=== PATIENT | male | born 1955 | race American Indian/Alaskan Native ===

== ENCOUNTER 2019-12-31 10:21 | Observation (INO) | payer BC, MEDICARE ==
[2019-12-31] MEDS ORDERED: ASPIRIN 325 MG TAB PO ONE (10:38)
[2019-12-31] MEDS ORDERED: traMADol 50 MG TAB PO ONE (10:55)
[2019-12-31] MEDS ORDERED: KETOROLAC 60 MG/2 ML INJ IM ONE (10:55)
--- NOTE | 2019-12-31 10:59 | Emergency Department Report ---
ED Chest Pain HPI - General Chief Complaint: Chest Pain Stated Complaint: CP Time Seen by Provider: 12/31/19 10:44 Source: patient, old records reviewed Mode of arrival: Wheelchair Limitations: No Limitations - History of Present Illness Initial Comments: 64-year-old male with a past medical history obesity, diabetes, hypertension, and bilateral chronic ankle pain presents to the hospital complaining pounding left-sided chest discomfort and bilateral ankle pain. Last night while at rest patient had intermittent left-sided chest pounding which she does not describe as painful. Episode lasted 2 to 3 minutes and was spontaneous resolved. He had 3-4 episodes last night. He denies associated symptoms include shortness of breath, nausea, vomiting, diaphoresis, or lightheadedness. For the last several years patient has had chronic intermittent bilateral ankle pain which has been worked up as an outpatient. He states he initially thought he had gout within stated he has rheumatoid arthritis and possible neuropathy. The last 6 months patient has been undergoing physical therapy for this ankle pain. Patient was taking tramadol for pain but ran out approximately 2 weeks ago. Now as of worsening bilateral ankle pain with mild swelling as well as numbness/paresthesias to the left second toe. No recent trauma or fever reported. Patient denies a previous history of CAD or stress test. Patient is a non-smoker and states that his brother had an TX in his early 60s - Related Data Previous Rx's Medication Instructions Recorded Last Taken Type Gabapentin [Neurontin] 300 mg PO Q8HR #90 tab 02/10/16 Unknown Rx glyBURIDE [Glyburide] 10 mg PO QAM #60 tablet 02/10/16 Unknown Rx lisinopriL [Zestril TAB] 10 mg PO QDAY #30 tablet 02/10/16 Unknown Rx metFORMIN [Glucophage] 500 mg PO BID #60 tablet 02/10/16 Unknown Rx Cyclobenzaprine [Flexeril] 10 mg PO QHS PRN #20 tablet 03/08/18 Unknown Rx Allergies Allergy/AdvReac Type Severity Reaction Status Date / Time No Known Allergies Allergy Unverified 02/10/16 11:31 Heart Score - HEART Score History: Slightly suspicious EKG: Non-specific Age: > 65 Risk factors: > 3 risk factors or hx of atherosclerotic disease Troponin: < normal limit HEART Score: 5 ED Review of Systems ROS: Stated complaint: CP Other details as noted in HPI Comment: All other systems reviewed and negative ED Past Medical Hx - Past Medical History Previous Medical History?: Yes Hx Hypertension: Yes Hx Diabetes: Yes - Surgical History Past Surgical History?: No - Social History Smoking Status: Never Smoker Substance Use Type: None - Medications Home Medications: Home Medications Medication Instructions Recorded Confirmed Last Taken Type Gabapentin [Neurontin] 300 mg PO Q8HR #90 tab 02/10/16 Unknown Rx glyBURIDE [Glyburide] 10 mg PO QAM #60 tablet 02/10/16 Unknown Rx lisinopriL [Zestril TAB] 10 mg PO QDAY #30 tablet 02/10/16 Unknown Rx metFORMIN [Glucophage] 500 mg PO BID #60 tablet 02/10/16 Unknown Rx Cyclobenzaprine [Flexeril] 10 mg PO QHS PRN #20 tablet 03/08/18 Unknown Rx ED Physical Exam - General Limitations: No Limitations - Other Other exam information: General: No acute distress Head: Atraumatic Eyes: normal appearance ENT: Moist mucous membranes Neck: Normal appearance, no midline tenderness Chest: Clear to auscultation bilaterally CV: Regular rate and rhythm Abdomen: Soft, normal bowel sounds, nontender, nondistended, no rebound or guarding Back: Normal inspection Extremity: Mild bilateral ankle swelling. Tender to palpation of medial and la teral ankles bilaterally. 2+ DP pulses equal bilaterally. No warmth or erythema. Full range of motion Neuro: Alert O x 3, no facial asymmetry, speech clear, no gross motor sensory deficit Psych: Appropriate behavior Skin: No rash ED Course Vital Signs 12/31/19 12/31/19 12/31/19 10:35 11:05 11:06 Temperature 98 F Pulse Rate 87 Respiratory 20 20 20 Rate Blood Pressure 147/76 [Left] O2 Sat by Pulse 98 Oximetry 12/31/19 11:19 Temperature Pulse Rate Respiratory 20 Rate Blood Pressure [Left] O2 Sat by Pulse 98 Oximetry FRAN score - Fran Score Age > 65: (1) Yes Aspirin use within the Past 7 Days: (0) No 3 or more CAD Risk Factors: (1) Yes 2 or more Angina events in past 24 hrs: (1) Yes Known CAD with more than 50% Stenosis: (0) No Elevated Cardiac Markers: (0) No ST Deviation Greater than 0.5mm: (0) No FRAN Score: 3 ED Medical Decision Making - Lab Data Result diagrams: 12/31/19 10:53 12/31/19 10:53 Lab Results 12/31/19 12/31/19 12/31/19 Range/Units 10:53 10:53 10:53 WBC 12.2 H (4.5-11.0) K/mm3 RBC 4.23 (3.65-5.03) M/mm3 Hgb 12.6 (11.8-15.2) gm/dl Hct 38.0 (35.5-45.6) % MCV 90 (84-94) fl MCH 30 (28-32) pg MCHC 33 (32-34) % RDW 13.9 (13.2-15.2) % Plt Count 279 (140-440) K/mm3 Eos % (Auto) Ambulance Driver Paramedic PT 14.0 (12.2-14.9) Sec. INR 1.06 (0.87-1.13) Sodium 139 (137-145) mmol/L Potassium 4.6 (3.6-5.0) mmol/L Chloride 99.9 (98-107) mmol/L Carbon Dioxide 26 (22-30) mmol/L Anion Gap 18 mmol/L BUN 21 H (9-20) mg/dL Creatinine 0.9 (0.8-1.3) mg/dL Estimated GFR > 60 ml/min BUN/Creatinine Ratio 23 % Glucose 191 H (75-100) mg/dL Calcium 10.4 H (8.4-10.2) mg/dL Troponin T < 0.010 (0.00-0.029) ng/mL - EKG Data -: EKG Interpreted by Ut EKG shows normal: sinus rhythm, ST-T waves (Flat lateral T waves in inferior T wave inversion on aVL) Rate: normal (85) - EKG Data When compared to previous EKG there are: no significant change - Radiology Data Radiology results: report reviewed CHEST 1 VIEW INDICATION: Chest Pain. COMPARISON: None. FINDINGS: Support devices: None. Heart: Normal. Lungs/Pleura: No acute pulmonary or pleural findings. IMPRESSION: 1. No acute findings. - Medical Decision Making 64-year-old male presents to the hospital planing of exacerbation of his chronic bilateral ankle pain with mild ankle edema but also has a secondary complaint of left-sided pounding chest pain intermittent last night. Chest pain is somewhat atypical without associated symptoms however, patient has a heart score of 5 without history of previous cardiac work-up or stress test and therefore will be admitted to the hospital for further cardiac work-up. Initial troponin negative with stable EKG findings when compared to previous. Patient treated with tramadol and aspirin in the ED Critical Care Time: No Critical care attestation.: If time is entered above; I have spent that time in minutes in the direct care of this critically ill patient, excluding procedure time. ED Disposition Clinical Impression: Chest pain, Chronic ankle pain, bilateral, Hypertension, BMI 30.0-30.9,adult, Diabetes Disposition: OP ADMIT IP TO THIS HOSP Is pt being admited?: Yes Does the pt Need Aspirin: Yes Condition: Stable Time of Disposition: 11:48 (Dr Landa/hospitalist)
[2019-12-31 11:12] LABS: Hemoglobin 12.6 gm/dl (11.8-15.2); Mean Corpuscular HGB Conc 33 % (32-34); Mean Corpuscular Volume 90 fl (84-94); Platelet Count 279 K/mm3 (140-440); Red Blood Count 4.23 M/mm3 (3.65-5.03); Red Cell Distribution Width 13.9 % (13.2-15.2)
[2019-12-31 11:23] LABS: INR 1.06 (0.87-1.13)
[2019-12-31 11:32] LABS: BUN/Creatinine Ratio 23; Blood Urea Nitrogen 21 mg/dL (9-20); Calcium 10.4 mg/dL (8.4-10.2); Hemolysis Index 25
--- NOTE | 2019-12-31 11:41 | XRay Report ---
CHEST 1 VIEW INDICATION: Chest Pain. COMPARISON: None. FINDINGS: Support devices: None. Heart: Normal. Lungs/Pleura: No acute pulmonary or pleural findings. IMPRESSION: 1. No acute findings. Signer Name: Vito Kulkarni MD Signed: 12/31/2019 11:37 AM Workstation Name: [id number]
[2019-12-31 12:18] LABS: Platelet Estimate Consistent w Auto; RBC Morphology Normal; Total Cells Counted 100
[2019-12-31] MEDS ORDERED: CYCLOBENZAPRINE 10 MG TAB PO PRN (13:04)
--- NOTE | 2019-12-31 13:04 | History and Physical Report ---
History of Present Illness Date of examination: 12/31/19 Date of admission: 12/31/19 Chief complaint: chest pain History of present illness: 64-year-old male presents to the hospital planing of exacerbation of his chronic bilateral ankle pain with mild ankle edema but also has a secondary complaint of left-sided pounding chest pain intermittent last night. Chest pain is somewhat atypical without associated symptoms however, patient has a heart score of 5 without history of previous cardiac work-up or stress test and therefore will be admitted to the hospital for further cardiac work-up. Initial troponin negative with stable EKG findings when compared to previous. Patient treated with tramadol and aspirin in the ED Medications and Allergies Allergies Allergy/AdvReac Type Severity Reaction Status Date / Time No Known Allergies Allergy Unverified 02/10/16 11:31 Home Medications Medication Instructions Recorded Confirmed Last Taken Type Gabapentin [Neurontin] 300 mg PO Q8HR #90 tab 02/10/16 Unknown Rx glyBURIDE [Glyburide] 10 mg PO QAM #60 tablet 02/10/16 Unknown Rx lisinopriL [Zestril TAB] 10 mg PO QDAY #30 tablet 02/10/16 Unknown Rx metFORMIN [Glucophage] 500 mg PO BID #60 tablet 02/10/16 Unknown Rx Cyclobenzaprine [Flexeril] 10 mg PO QHS PRN #20 tablet 03/08/18 Unknown Rx Exam - Constitutional Vitals: Temp Pulse Resp BP Pulse Ox 98 F 76 14 177/72 96 12/31/19 10:35 12/31/19 11:57 12/31/19 11:57 12/31/19 11:57 12/31/19 11:57 HEART Score - HEART Score EKG: Non-specific Age: > 65 Risk factors: > 3 risk factors or hx of atherosclerotic disease Troponin: WBC 12.2 K/mm3 (4.5-11.0) H 12/31/19 10:53 RBC 4.23 M/mm3 (3.65-5.03) 12/31/19 10:53 Hgb 12.6 gm/dl (11.8-15.2) 12/31/19 10:53 Hct 38.0 % (35.5-45.6) 12/31/19 10:53 MCV 90 fl (84-94) 12/31/19 10:53 MCH 30 pg (28-32) 12/31/19 10:53 MCHC 33 % (32-34) 12/31/19 10:53 RDW 13.9 % (13.2-15.2) 12/31/19 10:53 Plt Count 279 K/mm3 (140-440) 12/31/19 10:53 Eos % (Auto) Cable Worker Helper 12/31/19 10:53 Add Manual Diff Complete 12/31/19 10:53 Total Counted 100 12/31/19 10:53 Seg Neuts % (Manual) 49.0 % (40.0-70.0) 12/31/19 10:53 Band Neutrophils % 0 % 12/31/19 10:53 Lymphocytes % (Manual) 25.0 % (13.4-35.0) 12/31/19 10:53 Reactive Lymphs % (Man) 0 % 12/31/19 10:53 Monocytes % (Manual) 6.0 % (0.0-7.3) 12/31/19 10:53 Eosinophils % (Manual) 18.0 % (0.0-4.3) H 12/31/19 10:53 Basophils % (Manual) 2.0 % (0.0-1.8) H 12/31/19 10:53 Metamyelocytes % 0 % 12/31/19 10:53 Myelocytes % 0 % 12/31/19 10:53 Promyelocytes % 0 % 12/31/19 10:53 Blast Cells % 0 % 12/31/19 10:53 Nucleated RBC % Not Reportable 12/31/19 10:53 Seg Neutrophils # Man 6.0 K/mm3 (1.8-7.7) 12/31/19 10:53 Band Neutrophils # 0.0 K/mm3 12/31/19 10:53 Lymphocytes # (Manual) 3.1 K/mm3 (1.2-5.4) 12/31/19 10:53 Abs React Lymphs (Man) 0.0 K/mm3 12/31/19 10:53 Monocytes # (Manual) 0.7 K/mm3 (0.0-0.8) 12/31/19 10:53 Eosinophils # (Manual) 2.2 K/mm3 (0.0-0.4) H 12/31/19 10:53 Basophils # (Manual) 0.2 K/mm3 (0.0-0.1) H 12/31/19 10:53 Metamyelocytes # 0.0 K/mm3 12/31/19 10:53 Myelocytes # 0.0 K/mm3 12/31/19 10:53 Promyelocytes # 0.0 K/mm3 12/31/19 10:53 Blast Cells # 0.0 K/mm3 12/31/19 10:53 WBC Morphology Not Reportable 12/31/19 10:53 Hypersegmented Neuts Not Reportable 12/31/19 10:53 Hyposegmented Neuts Not Reportable 12/31/19 10:53 Hypogranular Neuts Not Reportable 12/31/19 10:53 Smudge Cells Not Reportable 12/31/19 10:53 Toxic Granulation Not Reportable 12/31/19 10:53 Toxic Vacuolation Not Reportable 12/31/19 10:53 Dohle Bodies Not Reportable 12/31/19 10:53 Pelger-Huet Anomaly Not Reportable 12/31/19 10:53 Mimi Rods Not Reportable 12/31/19 10:53 Platelet Estimate Consistent w auto 12/31/19 10:53 Clumped Platelets Not Reportable 12/31/19 10:53 Plt Clumps, EDTA Not Reportable 12/31/19 10:53 Large Platelets Not Reportable 12/31/19 10:53 Giant Platelets Not Reportable 12/31/19 10:53 Platelet Satelliting Not Reportable 12/31/19 10:53 Plt Morphology Comment Not Reportable 12/31/19 10:53 RBC Morphology Normal 12/31/19 10:53 Dimorphic RBCs Not Reportable 12/31/19 10:53 Polychromasia Not Reportable 12/31/19 10:53 Hypochromasia Not Reportable 12/31/19 10:53 Poikilocytosis Not Reportable 12/31/19 10:53 Anisocytosis Not Reportable 12/31/19 10:53 Microcytosis Not Reportable 12/31/19 10:53 Macrocytosis Not Reportable 12/31/19 10:53 Spherocytes Not Reportable 12/31/19 10:53 Pappenheimer Bodies Not Reportable 12/31/19 10:53 Sickle Cells Not Reportable 12/31/19 10:53 Target Cells Not Reportable 12/31/19 10:53 Tear Drop Cells Not Reportable 12/31/19 10:53 Ovalocytes Not Reportable 12/31/19 10:53 Helmet Cells Not Reportable 12/31/19 10:53 Tapia-Chaffee Bodies Not Reportable 12/31/19 10:53 Groton Rings Not Reportable 12/31/19 10:53 Jonathan Cells Not Reportable 12/31/19 10:53 Bite Cells Not Reportable 12/31/19 10:53 Crenated Cell Not Reportable 12/31/19 10:53 Elliptocytes Not Reportable 12/31/19 10:53 Acanthocytes (Spur) Not Reportable 12/31/19 10:53 Rouleaux Not Reportable 12/31/19 10:53 Hemoglobin C Crystals Not Reportable 12/31/19 10:53 Schistocytes Not Reportable 12/31/19 10:53 Malaria parasites Not Reportable 12/31/19 10:53 Matt Bodies Not Reportable 12/31/19 10:53 Hem Pathologist Commnt No 12/31/19 10:53 PT 14.0 Sec. (12.2-14.9) 12/31/19 10:53 INR 1.06 (0.87-1.13) 12/31/19 10:53 Sodium 139 mmol/L (137-145) 12/31/19 10:53 Potassium 4.6 mmol/L (3.6-5.0) 12/31/19 10:53 Chloride 99.9 mmol/L (98-107) 12/31/19 10:53 Carbon Dioxide 26 mmol/L (22-30) 12/31/19 10:53 Anion Gap 18 mmol/L 12/31/19 10:53 BUN 21 mg/dL (9-20) H 12/31/19 10:53 Creatinine 0.9 mg/dL (0.8-1.3) 12/31/19 10:53 Estimated GFR > 60 ml/min 12/31/19 10:53 BUN/Creatinine Ratio 23 % 12/31/19 10:53 Glucose 191 mg/dL (75-100) H 12/31/19 10:53 Calcium 10.4 mg/dL (8.4-10.2) H 12/31/19 10:53 Troponin T < 0.010 ng/mL (0.00-0.029) 12/31/19 10:53 Troponin: < normal limit Results - Labs CBC & Chem 7: 12/31/19 10:53 12/31/19 10:53 Labs: Abnormal lab results 12/31/19 12/31/19 Range/Units 10:53 10:53 WBC 12.2 H (4.5-11.0) K/mm3 Eosinophils % (Manual) 18.0 H (0.0-4.3) % Basophils % (Manual) 2.0 H (0.0-1.8) % Eosinophils # (Manual) 2.2 H (0.0-0.4) K/mm3 Basophils # (Manual) 0.2 H (0.0-0.1) K/mm3 BUN 21 H (9-20) mg/dL Glucose 191 H (75-100) mg/dL Calcium 10.4 H (8.4-10.2) mg/dL
[2019-12-31] MEDS ORDERED: NITROGLYCERIN 0.4 MG TAB SUBL SL PRN (13:06)
[2019-12-31] MEDS ORDERED: MORPHINE 2 MG/1 ML INJ IV PRN (13:06)
[2019-12-31] MEDS ORDERED: carvediloL 6.25 MG TAB PO ONE (13:09)
[2019-12-31] MEDS ORDERED: GABAPENTIN 300 MG CAP ONE (13:44)
[2019-12-31] MEDS ORDERED: carvediloL 6.25 MG TAB ONE (13:44)
[2019-12-31] MEDS: GABAPENTIN 300 MG CAP PO SCH ×2 (13:45→21:52)
--- NOTE | 2019-12-31 15:03 | History and Physical Report ---
<GRUPO MARISCAL - Last Filed: 12/31/19 16:04> History of Present Illness Date of examination: 12/31/19 Date of admission: 12/31/19 12:54 Chief complaint: Chest pain History of present illness: 64-year-old male presents to the hospital planing of exacerbation of his chronic bilateral ankle pain with mild ankle edema but also has a secondary complaint of left-sided pounding chest pain intermittent last night. Chest pain is somewhat atypical without associated symptoms however, patient has a heart score of 5 without history of previous cardiac work-up or stress test and therefore will be admitted to the hospital for further cardiac work-up. Initial troponin negative with stable EKG findings when compared to previous. Patient treated with tramadol and aspirin in the ED ED Work up showed WBC 12.2, Sodium 139, Potassium 4.6, CR 0.9, Troponin -normal Serum blood sugar 191 EKG-ST-T waves (Flat lateral T waves in inferior T wave inversion on aVL) Chest x-ray-No acute finding Patient seen at bedside in ED. He said his chest pain is better. He denies tobacco and illicit drug use I reviewed lab, mar, and v/s patient blood pressure at the time of this assessment 208/100 Patient strongly advised to be compliance with BP med-advised to monitor bp at home and f/u with his PCP if his bp is elevated. Patient started on amlodipine and lisinopril-will monitor BP level Patient report bilateral ankle pain. pain level 8/10 patient said he was told by his PCP he has arthritis Uric acid level done to r/o Gout Past History Past Medical History: CAD, diabetes, hypertension Family history: CAD Medications and Allergies Allergies Allergy/AdvReac Type Severity Reaction Status Date / Time No Known Allergies Allergy Unverified 02/10/16 11:31 Home Medications Medication Instructions Recorded Confirmed Last Taken Type Gabapentin [Neurontin] 300 mg PO Q8HR #90 tab 02/10/16 Unknown Rx glyBURIDE [Glyburide] 10 mg PO QAM #60 tablet 02/10/16 Unknown Rx lisinopriL [Zestril TAB] 10 mg PO QDAY #30 tablet 02/10/16 Unknown Rx metFORMIN [Glucophage] 500 mg PO BID #60 tablet 02/10/16 Unknown Rx Cyclobenzaprine [Flexeril] 10 mg PO QHS PRN #20 tablet 10/30/18 Unknown Rx Active Meds: Active Medications Aspirin (Ecotrin) 325 mg PO QDAY [facility] Atorvastatin Calcium (Lipitor) 40 mg PO QHS [facility] Cyclobenzaprine HCl (Flexeril) 10 mg PO QHS PRN PRN Reason: Muscle Spasm Enoxaparin Sodium (Enoxaparin) 40 mg SUB-Q QDAY [facility] Gabapentin (Gabapentin) 300 mg PO Q8HR [facility] Last Admin: 12/31/19 13:45 Dose: 300 mg Documented by: Insulin Human Regular (Humulin R) 0 unit SUB-Q ACHS [facility]; Protocol Lisinopril (Zestril) 10 mg PO QDAY [facility] Morphine Sulfate (Morphine) 2 mg IV Q5MIN PRN PRN Reason: Chest Pain unrelieved by NTG Nitroglycerin (Nitrostat) 0.4 mg SL Q5M PRN PRN Reason: Chest Pain Pantoprazole Sodium (Protonix) 40 mg PO QDAY [facility] Sodium Chloride (Sodium Chloride Flush Syringe 10 Ml) 10 ml IV PRN PRN PRN Reason: LINE FLUSH Review of Systems Cardiovascular: chest pain, high blood pressure Exam - Constitutional Vitals: Temp Pulse Resp BP Pulse Ox 98 F 78 18 176/96 96 12/31/19 10:35 12/31/19 13:00 12/31/19 13:00 12/31/19 13:00 12/31/19 13:00 General appearance: Present: mild distress, well-nourished, obese - EENT Eyes: Present: PERRL ENT: hearing intact, clear oral mucosa - Neck Neck: Present: supple, normal ROM - Respiratory Respiratory effort: normal Respiratory: bilateral: CTA - Cardiovascular Heart Sounds: Present: S1 & S2. Absent: rub, click - Extremities Extremities: pulses symmetrical, No edema Peripheral Pulses: within normal limits - Abdominal General gastrointestinal: Present: soft, non-tender, non-distended, normal bowel sounds Male genitourinary: Present: normal - Integumentary Integumentary: Present: clear, warm, dry - Musculoskeletal Musculoskeletal: gait normal, strength equal bilaterally - Psychiatric Psychiatric: appropriate mood/affect, intact judgment & insight - Neurologic Neurologic: CNII-XII intact, moves all extremities HEART Score - HEART Score History: Moderately suspicious EKG: Non-specific Age: > 65 Risk factors: > 3 risk factors or hx of atherosclerotic disease Troponin: Troponin T < 0.010 ng/mL (0.00-0.029) 12/31/19 10:53 Troponin: < normal limit HEART Score: 6 Results - Labs CBC & Chem 7: 12/31/19 10:53 12/31/19 10:53 Labs: Abnormal lab results 12/31/19 12/31/19 Range/Units 10:53 10:53 WBC 12.2 H (4.5-11.0) K/mm3 Eosinophils % (Manual) 18.0 H (0.0-4.3) % Basophils % (Manual) 2.0 H (0.0-1.8) % Eosinophils # (Manual) 2.2 H (0.0-0.4) K/mm3 Basophils # (Manual) 0.2 H (0.0-0.1) K/mm3 BUN 21 H (9-20) mg/dL Glucose 191 H (75-100) mg/dL Calcium 10.4 H (8.4-10.2) mg/dL Assessment and Plan - Patient Problems (1) BMI 30.0-30.9,adult Current Visit: Yes Status: Acute Plan to address problem: Discussed lifestyle modification healthy diet and weight management Avoid fried foods and foods rich in concentrated sweetners (2) Chest pain Current Visit: Yes Status: Acute Plan to address problem: Sublinqual nitro for pain 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 Oxygen supplement if needed (3) Chronic ankle pain, bilateral Current Visit: Yes Status: Acute Plan to address problem: Pain management patient advised to f/u with PCP/Pain management after d/c Will check uric acid to r/o gout flair up (4) Diabetes Current Visit: Yes Status: Acute Plan to address problem: Monitor blood sugar with ssi HGA1c f/u with result Discussed diabetic diet with pt Resume home antihyperglycemic (5) Hypertension Current Visit: Yes Status: Acute Plan to address problem: Monitor blood pressure Resume home med Sign Manufacturer consult Avoid salty foods (6) DVT of proximal leg (deep vein thrombosis) Current Visit: Yes Status: Acute (7) DVT prophylaxis Current Visit: Yes Status: Acute Plan to address problem: Lovenox (8) Leucocytosis Current Visit: Yes Status: Acute Plan to address problem: WBC 12.2 ? cause UA ordered-f/u with result Patient denies fever, cough -lung clear on auscultation Chest x-ray shows no acute process <FABIANA CARBAJAL R - Last Filed: 01/01/20 12:40> History of Present Illness Date of admission: 12/31/19 12:54 Medications and Allergies Active Meds: Active Medications Amlodipine Besylate (Amlodipine) 10 mg PO QDAY [facility] Last Admin: 12/31/19 19:07 Dose: 10 mg Documented by: Aspirin (Ecotrin) 325 mg PO QDAY [facility] Atorvastatin Calcium (Lipitor) 40 mg PO QHS [facility] Last Admin: 12/31/19 21:53 Dose: 40 mg Documented by: Cyclobenzaprine HCl (Flexeril) 10 mg PO QHS PRN PRN Reason: Muscle Spasm Enoxaparin Sodium (Enoxaparin) 40 mg SUB-Q QDAY [facility] Gabapentin (Gabapentin) 300 mg PO Q8HR [facility] Last Admin: 01/01/20 06:32 Dose: 300 mg Documented by: Hydralazine HCl (Apresoline) 5 mg IV Q4HR PRN PRN Reason: Hypertension Insulin Human Regular (Humulin R) 0 unit SUB-Q [facility]; Protocol Last Admin: 01/01/20 09:09 Dose: Not Given Documented by: Lisinopril (Zestril) 40 mg PO QDAY [facility] Last Admin: 12/31/19 19:07 Dose: 40 mg Documented by: Morphine Sulfate (Morphine) 2 mg IV Q5MIN PRN PRN Reason: Chest Pain unrelieved by NTG Nitroglycerin (Nitrostat) 0.4 mg SL Q5M PRN PRN Reason: Chest Pain Pantoprazole Sodium (Protonix) 40 mg PO QDAY [facility] Sodium Chloride (Sodium Chloride Flush Syringe 10 Ml) 10 ml IV PRN PRN PRN Reason: LINE FLUSH Last Admin: 12/31/19 21:53 Dose: 10 ml Documented by: Exam - Constitutional Vitals: Temp Pulse Resp BP Pulse Ox 97.8 F 76 18 135/67 97 01/01/20 07:48 01/01/20 07:48 01/01/20 07:48 01/01/20 07:48 01/01/20 07:48 HEART Score - HEART Score Troponin: Troponin T < 0.010 ng/mL (0.00-0.029) 12/31/19 19:28 Results - Labs CBC & Chem 7: 01/01/20 05:15 12/31/19 14:48 Labs: Abnormal lab results 12/31/19 12/31/19 12/31/19 Range/Units 14:48 14:48 15:27 Eosinophils % (Manual) (0.0-4.3) % Eosinophils # (Manual) (0.0-0.4) K/mm3 BUN 23 H (9-20) mg/dL Glucose 102 H (75-100) mg/dL POC Glucose (70-105) Hemoglobin A1c 7.7 H (4-6) % Uric Acid 8.6 H (3.5-7.6) mg/dL 12/31/19 12/31/19 01/01/20 Range/Units 18:15 19:21 05:15 Eosinophils % (Manual) 23.0 H (0.0-4.3) % Eosinophils # (Manual) 2.2 H (0.0-0.4) K/mm3 BUN (9-20) mg/dL Glucose (75-100) mg/dL POC Glucose 62 L 111 H (70-105) Hemoglobin A1c (4-6) % Uric Acid (3.5-7.6) mg/dL 01/01/20 Range/Units 08:10 Eosinophils % (Manual) (0.0-4.3) % Eosinophils # (Manual) (0.0-0.4) K/mm3 BUN (9-20) mg/dL Glucose (75-100) mg/dL POC Glucose 132 H (70-105) Hemoglobin A1c (4-6) % Uric Acid (3.5-7.6) mg/dL Assessment and Plan I saw and evaluated the patient. I agree with the findings and the plan of care as documented in the Nurse Practitioner's~note,
[2019-12-31] MEDS ORDERED: hydrALAZINE 20 MG/1 ML INJ IV PRN (15:53)
[2019-12-31 16:40] LABS: BUN/Creatinine Ratio 23; Blood Urea Nitrogen 23 mg/dL (9-20); Calcium 10.2 mg/dL (8.4-10.2); Hemolysis Index 6
[2019-12-31] MEDS: INSULIN REGULAR, HUMAN 100 UNIT/ML 3ML VIAL SUB-Q SCH (19:01)
[2019-12-31] MEDS: LISINOPRIL 40 MG TAB PO SCH (19:07)
[2019-12-31] MEDS: amLODIPine 10 MG TAB PO SCH (19:07)
[2020-01-01] MEDS: INSULIN REGULAR, HUMAN 100 UNIT/ML 3ML VIAL SUB-Q SCH ×4 (00:05→17:00)
[2020-01-01 05:51] LABS: Hematocrit 36.7 % (35.5-45.6); Hemoglobin 12.2 gm/dl (11.8-15.2); Mean Corpuscular HGB Conc 33 % (32-34); Mean Corpuscular Volume 90 fl (84-94); Platelet Count 264 K/mm3 (140-440); Red Blood Count 4.08 M/mm3 (3.65-5.03); Red Cell Distribution Width 13.7 % (13.2-15.2)
[2020-01-01] MEDS: GABAPENTIN 300 MG CAP PO SCH ×2 (06:32→13:41)
[2020-01-01 08:11] LABS: Total Cells Counted 100
[2020-01-01 08:14] LABS: Platelet Estimate Consistent w Auto; RBC Morphology Normal
[2020-01-01] MEDS ORDERED: PANTOPRAZOLE 40 MG TAB PO SCH (10:00)
[2020-01-01] MEDS ORDERED: ENOXAPARIN 40 MG/0.4 ML INJ SUB-Q SCH (10:00)
[2020-01-01] MEDS ORDERED: ASPIRIN EC 325 MG TAB PO SCH (10:00)
[2020-01-01] MEDS ORDERED: LISINOPRIL 10 MG TAB PO SCH (10:00)
[2020-01-01] MEDS ORDERED: ENOXAPARIN 60 MG/0.6 ML INJ SUB-Q SCH (10:00)
[2020-01-01] MEDS ORDERED: REGADENOSON 0.4 MG/5 ML INJ IV ONE ×2 (11:33)
[2020-01-01 12:47] VITALS: BP 137/73
[2020-01-01] MEDS: amLODIPine 10 MG TAB PO SCH (13:38)
[2020-01-01] MEDS: LISINOPRIL 40 MG TAB PO SCH (13:40)
--- NOTE | 2020-01-01 14:37 | Treadmill Report ---
THALLIUM STRESS TEST LEFT VENTRICLE: Left ventricular chamber size is within normal spread. Perfusion study demonstrates homogeneous uptake of the tracer in all segments, no significant defects identified. Gated analysis demonstrates normal left ventricular systolic function, ejection fraction 63%. CONCLUSION: Normal myocardial perfusion study. JOB# [id number] CA/NTS
--- NOTE | 2020-01-01 15:57 | Discharge Summary ---
Providers - Providers Date of Admission: 12/31/19 12:54 Date of discharge: 01/01/20 Attending physician: FABIANA CARBAJAL 12/31/19 Consult to Cardiac Rehabilitation [CONS] Routine Reason For Exam: Phase I 12/31/19 13:05 Consult to Physician [CONS] Routine Comment: Consulting Provider: VANCE REYES Physician Instructions: Reason For Exam: chest pain [facility] Condition: Stable Hospital course: This is a 64-year-old black male with a history of hypertension and hyperl ipidemia presented to the ER with complaints of Retrosternal chest pain for 1 day. Patient was evaluated in the ER, initial cardiac enzyme and EKG was unremarkable, chest x-ray showed no infiltrates. Patient was admitted and underwent myocardial stress test which was normal, 2D echo showed preserved EF. Patient also: Planes of bilateral ankle swelling, his uric acid was elevated, patient was placed on allopurinol and patient was then discharged home in stable condition with outpatient follow-up. EKG-ST-T waves (Flat lateral T waves in inferior T wave inversion on aVL) Chest x-ray-No acute finding MPI stress test, normal 2D echo showed EF 45 to 50% Discharge diagnosis: Chest pain, most likely GERD -Continue PPI Mild chronic CHF, EF 45 to 50%, compensated Obesity Chronic ankle pain, bilateral -likely due to gout Diabetes mellitus type 2, A1c 7.7 Leukocytosis, reactive, no sepsis or Sirs Hypertension, uncontrolled Disposition: DC-01 TO HOME OR SELFCARE Time spent for discharge: 34 minutes Core Measure Documentation - Palliative Care Palliative Care/ Comfort Measures: Not Applicable - Core Measures Any of the following diagnoses?: heart failure - Heart Failure Discharge Requirements MARIJA/ARB for LVSD if EF <40%: Yes Beta tatum at discharge: Yes Exam - Physical Exam Narrative exam: GENERAL: well-developed and well-nourished black male lying on bed appeared to be in no discomfort. HEENT: Normocephalic. Atraumatic. No conjunctival congestion or icterus. Pat ient has moist mucous membranes. NECK: Supple. Trachea midline. CHEST/LUNGS: Clear to auscultated bilaterally, breathing nonlabored. No wheezes crackles or rhonchi. HEART/CARDIOVASCULAR: Regular in rate and rhythm. S1 and S2 positive. ABDOMEN: Abdomen is soft, nontender. Patient has normal bowel sounds. SKIN: There is no rash. Warm and dry. NEURO: No focal motor deficit. Follows command. MUSCULOSKELETAL: No joint effusion or tenderness. EXTRIMITY: No edema, no cyanosis or clubbing. PSYCH: Cooperative. - Constitutional Vitals: Temp Pulse Resp BP Pulse Ox 97.8 F 93 H 18 137/73 97 01/01/20 07:48 01/01/20 13:40 01/01/20 07:48 01/01/20 13:40 01/01/20 07:48 Plan Activity: advance as tolerated Weight Bearing Status: Weight Bear as Tolerated Diet: low fat, diabetic Special Instructions: record daily BP diary, record blood sugar diary Follow up with: [facility] MD HELEN [Primary Care Provider] - 7 Days Prescriptions: amLODIPine 10 mg PO QDAY #30 tablet Colchicine 0.6 mg PO BID #20 capsule Aspirin EC [Halfprin EC] 81 mg PO DAILY #30 tablet. Pantoprazole [Protonix TAB] 40 mg PO QDAY #30 tablet
[2020-01-01] MEDS ORDERED: COLCHICINE 0.6 MG CAP PO SCH (16:00)
--- NOTE | 2020-01-01 18:41 | Consultation ---
History of Present Illness Consult date: 01/01/20 Consult reason: chest pain History of present illness: The patient is a 64-year-old man with chronic hypertension and diabetes, no p rior cardiac history. He presented to the hospital primarily with complaints of swelling and pain in his ankles when he walked. He states that he is being worked up for arthritis and possible gout by his primary outpatient physician. He has no chest pain, no shortness of breath and no palpitations. ECG was normal sinus rhythm with left ventricular hypertrophy and nonspecific ST and T wave changes. A chest x-ray demonstrated normal size cardiac silhouette, and clear lungs with no interstitial edema or heart failure. Today, he underwent additional cardiac testing ordered by the medical service. A Lexiscan thallium stress test was normal. Echocardiogram demonstrated left ventricular ejection fraction 45 to 50% with moderate concentric left ventricular hypertrophy. Past History Past Medical History: diabetes, hypertension Family history: CAD Medications and Allergies Allergies Allergy/AdvReac Type Severity Reaction Status Date / Time No Known Allergies Allergy Unverified 02/10/16 11:31 Home Medications Medication Instructions Recorded Confirmed Last Taken Type Gabapentin 300 mg PO Q8HR #90 tab 02/10/16 01/01/20 Unknown Rx glyBURIDE [Glyburide] 10 mg PO QAM #60 tablet 02/10/16 01/01/20 Unknown Rx metFORMIN [Glucophage] 500 mg PO BID #60 tablet 02/10/16 01/01/20 Unknown Rx Aspirin EC [Halfprin EC] 81 mg PO DAILY #30 tablet. 01/01/20 Unknown Rx Colchicine 0.6 mg PO BID #20 capsule 01/01/20 Unknown Rx Losartan [Cozaar] 25 mg PO DAILY 01/01/20 01/01/20 Unknown History Pantoprazole [Protonix TAB] 40 mg PO QDAY #30 tablet 01/01/20 Unknown Rx amLODIPine 10 mg PO QDAY #30 tablet 01/01/20 Unknown Rx Active Meds: Active Medications Amlodipine Besylate (Amlodipine) 10 mg PO QDAY [facility] Last Admin: 01/01/20 13:38 Dose: 10 mg Documented by: Aspirin (Ecotrin) 325 mg PO QDAY [facility] Last Admin: 01/01/20 13:38 Dose: 325 mg Documented by: Atorvastatin Calcium (Lipitor) 40 mg PO QHS [facility] Last Admin: 12/31/19 21:53 Dose: 40 mg Documented by: Colchicine (Colchicine) 0.6 mg PO BID [facility] Last Admin: 01/01/20 16:06 Dose: 0.6 mg Documented by: Cyclobenzaprine HCl (Flexeril) 10 mg PO QHS PRN PRN Reason: Muscle Spasm Enoxaparin Sodium (Enoxaparin) 40 mg SUB-Q QDAY [facility] Last Admin: 01/01/20 13:40 Dose: 40 mg Documented by: Gabapentin (Gabapentin) 300 mg PO Q8HR [facility] Last Admin: 01/01/20 13:41 Dose: 300 mg Documented by: Hydralazine HCl (Apresoline) 5 mg IV Q4HR PRN PRN Reason: Hypertension Insulin Human Regular (Humulin R) 0 unit SUB-Q [facility]; Protocol Last Admin: 01/01/20 11:30 Dose: Not Given Documented by: Lisinopril (Zestril) 40 mg PO QDAY [facility] Last Admin: 01/01/20 13:40 Dose: 40 mg Documented by: Morphine Sulfate (Morphine) 2 mg IV Q5MIN PRN PRN Reason: Chest Pain unrelieved by NTG Nitroglycerin (Nitrostat) 0.4 mg SL Q5M PRN PRN Reason: Chest Pain Pantoprazole Sodium (Protonix) 40 mg PO QDAY [facility] Last Admin: 01/01/20 13:38 Dose: 40 mg Documented by: Sodium Chloride (Sodium Chloride Flush Syringe 10 Ml) 10 ml IV PRN PRN PRN Reason: LINE FLUSH Last Admin: 12/31/19 21:53 Dose: 10 ml Documented by: Review of Systems Cardiovascular: edema, no chest pain, no orthopnea, no palpitations, no rapid/irregular heart beat, no syncope, no lightheadedness, no shortness of breath Physical Examination Vital Signs Temp Pulse Resp BP Pulse Ox 98 F 87 20 147/76 98 12/31/19 10:35 12/31/19 10:35 12/31/19 10:35 12/31/19 10:35 12/31/19 10:35 General appearance: no acute distress HEENT: Positive: PERRL Neck: Positive: neck supple Cardiac: Positive: Reg Rate and Rhythm Lungs: Positive: Decreased Breath Sounds Neuro: Positive: Grossly Intact Abdomen: Positive: Soft Male genitourinary: Positive: deferred Skin: Positive: Clear Extremities: Absent: edema Results 01/01/20 05:15 12/31/19 14:48 CBC 01/01/20 Range/Units 05:15 WBC 9.4 (4.5-11.0) K/mm3 RBC 4.08 (3.65-5.03) M/mm3 Hgb 12.2 (11.8-15.2) gm/dl Hct 36.7 (35.5-45.6) % Plt Count 264 (140-440) K/mm3 EKG interpretations - Telemetry EKG Rhythm: Sinus Rhythm Assessment and Plan - Patient Problems (1) Ankle pain Current Visit: Yes Status: Acute Plan to address problem: Patient has pain and swelling of both ankles, undergoing work-up by his outpatient doctor for rheumatoid arthritis and gout. There are no cardiac spec ific symptoms, ECG, echocardiogram and Lexiscan stress test are negative. No further cardiac work-up is recommended, continue optimal blood pressure management and risk factor modification.
== END 2020-01-01 18:00 | disposition home or self-care (01) ==
LOC: ED 10:21 → 4A 12:54
PROVIDERS: ADMIT Internal Medicine; ATTEND Internal Medicine
DX: R07.89 Other chest pain (principal); E11.9 Type 2 diabetes mellitus without complications; I10 Essential (primary) hypertension; I25.10 Atherosclerotic heart disease of native coronary artery without angina pectoris; M25.571 Pain in right ankle and joints of right foot; M25.572 Pain in left ankle and joints of left foot; Z68.30 Body mass index [BMI] 30.0-30.9, adult; Z79.82 Long term (current) use of aspirin; Z79.84 Long term (current) use of oral hypoglycemic drugs
CPT/HCPCS: 36415; 71045; 78452; 80048; 82962; 83036; 84484; 84550; 85007; 85025; 85610; 93005; 93017; 93306; 96372; 99285; A9270; A9502; G0378; J1650; J1885; J2785; J1815

== ENCOUNTER 2020-07-07 12:00 | Emergency (ER) | payer BC, MEDICARE, OTHER ==
--- NOTE | 2020-07-07 12:15 | Event Note ---
ED Screening Note Date of service: 07/07/20 Time: 12:15 ED Screening Note: 64-year-old male with a PICC line to the left anterior chest presents for PICC line getting clogged and needing to have it flushed. No other complaints This initial assessment/diagnostic orders/clinical plan/treatment(s) is/are subject to change based on patients health status, clinical progression and re- assessment by fellow clinical providers in the ED. Further treatment and workup at subsequent clinical providers discretion. Patient/guardian urged not to elope from the ED as their condition may be serious if not clinically assessed and managed. Initial orders includes: Page PICC line nurse
--- NOTE | 2020-07-07 13:25 | Emergency Department Report ---
HPI - General Chief Complaint: Medical Clearance Time Seen by Provider: 07/07/20 13:11 - HPI HPI: This is a 65-year-old male who presents to the emergency department with a complaint of a clogged left upper extremity PICC line. Patient says that he is currently getting antibiotics for a left leg cellulitis. A nurse comes to his home daily to administer the antibiotics and she was unable to use the PICC line this morning. He has a history of diabetes, hypertension and recent left leg/foot surgery. He denies any fever, chest pain, shortness of breath, extremity swelling. ED Past Medical Hx - Past Medical History Previous Medical History?: Yes Hx Hypertension: Yes Hx Diabetes: Yes Additional medical history: Left leg cellulitis - Surgical History Past Surgical History?: Yes Additional Surgical History: Left leg and left foot surgery - Social History Smoking Status: Never Smoker Substance Use Type: Alcohol - Medications Home Medications: Home Medications Medication Instructions Recorded Confirmed Last Taken Type Gabapentin 300 mg PO Q8HR #90 tab 02/10/16 01/01/20 Unknown Rx glyBURIDE [Glyburide] 10 mg PO QAM #60 tablet 02/10/16 01/01/20 Unknown Rx metFORMIN [Glucophage] 500 mg PO BID #60 tablet 02/10/16 01/01/20 Unknown Rx Aspirin EC [Halfprin EC] 81 mg PO DAILY #30 tablet. 01/01/20 Unknown Rx Colchicine 0.6 mg PO BID #20 capsule 01/01/20 Unknown Rx Losartan [Cozaar] 25 mg PO DAILY 01/01/20 01/01/20 Unknown History Pantoprazole [Protonix TAB] 40 mg PO QDAY #30 tablet 01/01/20 Unknown Rx amLODIPine 10 mg PO QDAY #30 tablet 01/01/20 Unknown Rx ED Review of Systems ROS: Stated complaint: PIC LINE CLOTTED Other details as noted in HPI Constitutional: denies: chills, fever Eyes: denies: as per HPI Respiratory: denies: cough, shortness of breath Cardiovascular: denies: chest pain, palpitations Gastrointestinal: denies: abdominal pain, vomiting Musculoskeletal: denies: back pain Neurological: denies: headache, weakness Physical Exam - Physical Exam Vital Signs: Vital Signs 07/07/20 12:03 Temperature 98 F Pulse Rate 82 Respiratory 20 Rate Blood Pressure 169/76 O2 Sat by Pulse 97 Oximetry Physical Exam: GENERAL: The patient is well-developed well-nourished. HENT: Normocephalic. Atraumatic. Patient has moist mucous membranes. EYES: Extraocular motions are intact. NECK: Supple. Trachea is midline. CHEST/LUNGS: Clear to auscultation. There is no respiratory distress noted. HEART/CARDIOVASCULAR: Regular. There is no tachycardia. There is no murmur. ABDOMEN: Abdomen is soft, nontender. Patient has normal bowel sounds. SKIN: Skin is warm and dry. NEURO: The patient is awake, alert, and oriented. The patient is cooperative. The patient has no focal neurologic deficits. Normal speech. MUSCULOSKELETAL: There is no tenderness or deformity in the exposed extremities. The left lower extremity is in a cast. PICC line in the left upper extremity. ED Course Vital Signs 07/07/20 12:03 Temperature 98 F Pulse Rate 82 Respiratory 20 Rate Blood Pressure 169/76 O2 Sat by Pulse 97 Oximetry ED Medical Decision Making - Medical Decision Making Patient presents with the complaint of an occluded PICC line. The IV/PICC team nurse came down and was able to clear the PICC line of a small clot. Vital signs reassuring including being afebrile. Patient has the antibiotics at home to be infused and has daily nurse visits. He will return to the emergency department with any further complications, concerns or with any acute distress. Critical Care Time: No Critical care attestation.: If time is entered above; I have spent that time in minutes in the direct care of this critically ill patient, excluding procedure time. ED Disposition Clinical Impression: Occluded PICC line Qualifiers: Encounter type: initial encounter Qualified Code(s): T82.898A - Other specified complication of vascular prosthetic devices, implants and grafts, initial encounter Disposition: DC-01 TO HOME OR SELFCARE Is pt being admited?: No Condition: Stable Additional Instructions: Please continue with your antibiotic infusions. Please continue with what ever outpatient follow-ups you have previously scheduled. Return to the emergency department with any worsening of your symptoms, new or concerning symptoms not addressed during this current emergency department visit, or with any acute distress. Referrals: PRIMARY CARE, [Primary Care Provider] - 3-5 Days Time of Disposition: 14:48
[2020-07-07 15:06] VITALS: BP 170/84
== END 2020-07-07 15:06 | disposition home or self-care (01) ==
LOC: ED 12:00
DX: T82.898A Other specified complication of vascular prosthetic devices, implants and grafts, initial encounter (principal); I10 Essential (primary) hypertension; E11.9 Type 2 diabetes mellitus without complications; Z98.890 Other specified postprocedural states; Z79.899 Other long term (current) drug therapy; Y83.9 Surgical procedure, unspecified as the cause of abnormal reaction of the patient, or of later complication, without mention of misadventure at the time of the procedure; Y92.89 Other specified places as the place of occurrence of the external cause
CPT/HCPCS: 99282